=== PATIENT | female | born 1995 | race Caucasian/White ===

== ENCOUNTER 2018-10-02 19:55 | Emergency (ER) | payer OTHER ==
[~2018-10-02] VITALS: Ht 162.6 cm; Wt 65.8 kg
[2018-10-02 20:06] VITALS: Ht 162.6 cm; Wt 65.8 kg
[2018-10-02 21:31] VITALS: BP 116/49
== END 2018-10-02 21:31 | disposition home or self-care (01) ==
LOC: ED 19:55
DX: R06.02 Shortness of breath (principal); R07.89 Other chest pain; R51 Headache; R42 Dizziness and giddiness; R00.2 Palpitations; R61 Generalized hyperhidrosis
CPT/HCPCS: 82962